=== PATIENT | female | born 2000 | race American Indian/Alaskan Native ===

== ENCOUNTER 2022-03-19 21:34 | Outpatient (CLI) | payer MEDICAID ==
[2022-03-19] MEDS ORDERED: LACTATED RINGERS 500 ML IV ONE (22:01)
[2022-03-20 00:59] VITALS: BP 135/65
--- NOTE | 2022-03-20 01:35 | Ultrasound Report ---
US OB limited INDICATION / CLINICAL INFORMATION: Cramping, 30 weeks COMPARISON: None available. FINDINGS/IMPRESSION: Limited sonographic evaluation of the cervix. The cervix is closed and measures 3.7 cm in length. Signer Name: Markus Ríos MD Signed: 03/20/2022 1:31 AM Workstation Name: [id number]
--- NOTE | 2022-03-20 01:45 | Ultrasound Report ---
ULTRASOUND OBSTETRIC COMPLETE INDICATION / CLINICAL INFORMATION: EFW/WERO. Clinical Gestational Age (GA) in weeks, days: 31 weeks 1 day TECHNIQUE: Transabdominal. COMPARISON: None available. FINDINGS: NUMBER: Single PRESENTATION: cephalic PLACENTA: Not imaged MATERNAL ADNEXA: No significant abnormality. AMNIOTIC FLUID VOLUME: normal AMNIOTIC FLUID INDEX (WERO) in cm (if measured): 20.3 MEASUREMENTS: - Biparietal Diameter = 7.8 cm = 31 weeks 3 days - Head Circumference = 20 7. cm = 30 weeks 3 days - Abdominal Circumference = 26.3 cm = 30 weeks 3 days - Femur Length = 5.5 cm = 29 weeks 3 days - Estimated Weight (in grams, if calculated): 1514 - Heart Rate (beats per minute): 137 ADDITIONAL FINDINGS: None. PERCENTILE ESTIMATED WEIGHT (if calculated): 12 AVERAGE ULTRASOUND AGE (AUA) in weeks, days = 30 weeks 3 days IMPRESSION: 1. Single intrauterine with AUA of 30 weeks 3 days. No significant abnormality. Estimated f etal weight is 1514 g. 2. Amniotic fluid index is within normal limits, measuring 20.3 cm. Signer Name: Markus Ríos MD Signed: 03/20/2022 1:40 AM Workstation Name: [id number]
== END 2022-03-20 01:15 | disposition home or self-care (01) ==
LOC: TRG 21:34 → APU 21:36 → TRG 03-20 01:15
PROVIDERS: ATTEND Obstetrics & Gynecology
DX: Z34.93 Encounter for supervision of normal pregnancy, unspecified, third trimester (principal); Z3A.30 30 weeks gestation of pregnancy
CPT/HCPCS: 36415; 76816; 76817; 82731

== ENCOUNTER 2022-04-22 20:21 | Outpatient (CLI) | payer MEDICAID ==
[2022-04-22 20:36] VITALS: BP 138/62
--- NOTE | 2022-04-23 08:45 | Ultrasound Report ---
US OB follow up INDICATION / CLINICAL INFORMATION: EFW,WERO COMPARISON: OB ultrasound 03/20/2022 TECHNIQUE: Using a transcutaneous probe, multiple grayscale, color Doppler, and spectral Doppler imag es of the uterus and fetus were captured and stored. FINDINGS: A single cephalic fetus with heart rate of 145 bpm is demonstrated. Amniotic fluid index is within normal limits measuring 15.8 cm. Biparietal Diameter = 9.2 cm = 37, 3 weeks, days Head Circumference = 33.1 cm = 37, 5 weeks, days Abdominal Circumference = 28.2 cm = 32, 1 weeks, days Femur Length = 6.5 cm = 33, 2 weeks, days Average Ultrasound Age (AUA) = 35, 1 weeks, days. EDC 05/26/2022. Clinical estimate gestational age based on LMP of 08/14/2021 is 35 weeks 6 days. Estimated weight = 2215 g. Growth percentile 5. Cervix is measured at 4.1 cm. The internal os not well visualized.. IMPRESSION: 1. Single living intrauterine gestation with estimated weight of 2215 g. Amniotic fluid index i s normal. Signer Name: Juan Miguel Barnhart II, MD Signed: 04/22/2022 11:34 PM Workstation Name: [id number]
== END 2022-04-22 22:40 | disposition home or self-care (01) ==
LOC: TRG 20:21 → APU 20:23 → TRG 22:40
PROVIDERS: ATTEND Obstetrics & Gynecology Gynecology
DX: O26.893 Other specified pregnancy related conditions, third trimester (principal); R10.2 Pelvic and perineal pain; Z3A.37 37 weeks gestation of pregnancy
CPT/HCPCS: 76816